=== PATIENT | male | born 1940 | race Caucasian/White ===

== ENCOUNTER → 2016-10-30 | Outpatient (CLI) | payer MEDICARE, OTHER ==
[~2016-10-30] MED LIST: ALDACTONE25 MG PO; ASPIR 8181 MG PO; DIGOXIN125 MCG PO; FINASTERIDE5 MG PO; FOLIC ACID1 MG PO; GLUCOPHAGE500 MG PO; LASIX 40 MG TAB40 MG PO; LIPITOR TAB 2020 MG PO; METHOTREXATE2.5 MG PO; MONTELUKAST SOD10 MG PO; NITROSTAT 0.40.4 MG SL; PRADAXA 150 MG150 MG PO; PREDNISONE 10 M10 MG PO; PROTONIX 40 MG40 M1 PO; RAZADYNE12 MG PO; TIZANIDINE HCL4 MG PO; TOPROL XL50 MG PO
[2016-10-30 11:24] LABS: HEMOGLOBIN 15.1 gm/dl (14.0-17.5); RED BLOOD COUNT 4.99 M/UL (4.20-5.50); WHITE BLOOD COUNT 11.4 K/UL (4.5-11.0)
[2016-10-30 12:06] LABS: BUN/CREATININE RATIO 19 (0-10)
== END ==
LOC: LAB 10:26
PROVIDERS: Internal Medicine
DX: R68.89 Other general symptoms and signs (principal); I71.4 Abdominal aortic aneurysm, without rupture; M79.606 Pain in leg, unspecified
CPT/HCPCS: 36415; 80048; 85025; 85610; 85730

== ENCOUNTER → 2016-11-01 | Outpatient (CLI) | payer MEDICARE, OTHER ==
[~2016-11-01] VITALS: Ht 180.3 cm; Wt 103.0 kg
== END | disposition home or self-care (01) ==
LOC: CATH 06:24
DX: I70.221 Atherosclerosis of native arteries of extremities with rest pain, right leg (principal); I71.4 Abdominal aortic aneurysm, without rupture; I11.0 Hypertensive heart disease with heart failure; I50.32 Chronic diastolic (congestive) heart failure; I48.2 Chronic atrial fibrillation; I48.0 Paroxysmal atrial fibrillation; E78.5 Hyperlipidemia, unspecified; E11.9 Type 2 diabetes mellitus without complications; R68.89 Other general symptoms and signs; Z87.891 Personal history of nicotine dependence; Z79.02 Long term (current) use of antithrombotics/antiplatelets; E66.9 Obesity, unspecified; M25.50 Pain in unspecified joint; M62.81 Muscle weakness (generalized); R06.02 Shortness of breath; R07.89 Other chest pain; Z79.82 Long term (current) use of aspirin; Z79.52 Long term (current) use of systemic steroids; Z79.899 Other long term (current) drug therapy; Z79.01 Long term (current) use of anticoagulants; I25.10 Atherosclerotic heart disease of native coronary artery without angina pectoris; K21.9 Gastro-esophageal reflux disease without esophagitis; I49.3 Ventricular premature depolarization; Z68.33 Body mass index [BMI] 33.0-33.9, adult; Z79.84 Long term (current) use of oral hypoglycemic drugs
CPT/HCPCS: 36200; 75630; 82962; C1769; C1887; J1644; J2250; J3010; J7030; Q9965

== ENCOUNTER → 2016-11-21 | Outpatient (CLI) | payer MEDICARE, OTHER | LOC: HEART 5 12:47 | DX: I25.10 Atherosclerotic heart disease of native coronary artery without angina pectoris (principal); M79.605 Pain in left leg; M79.604 Pain in right leg; I48.2 Chronic atrial fibrillation; I50.32 Chronic diastolic (congestive) heart failure; Z86.718 Personal history of other venous thrombosis and embolism ==

== ENCOUNTER 2017-01-12 18:40 | Emergency (ER) | payer MEDICARE | END 2017-01-12 22:50 | disposition home or self-care (01) | LOC: ER1 18:40 | DX: S39.012A Strain of muscle, fascia and tendon of lower back, initial encounter (principal); I11.0 Hypertensive heart disease with heart failure; I50.9 Heart failure, unspecified; E11.9 Type 2 diabetes mellitus without complications; X58.XXXA Exposure to other specified factors, initial encounter; Z79.82 Long term (current) use of aspirin; Z79.899 Other long term (current) drug therapy | CPT/HCPCS: 72131; 73564; 99284 ==

== ENCOUNTER → 2017-02-28 | Outpatient (CLI) | payer MEDICARE, OTHER | LOC: US 09:52 | DX: I71.4 Abdominal aortic aneurysm, without rupture (principal) | CPT/HCPCS: 93979 ==

== ENCOUNTER → 2020-11-24 | Outpatient (CLI) | payer MEDICARE, OTHER ==
[~2020-11-24] MED LIST changes: +KEFLEX500 MG PO
== END ==
LOC: HEART CORB 09:25
DX: R07.2 Precordial pain (principal); I34.0 Nonrheumatic mitral (valve) insufficiency; I07.1 Rheumatic tricuspid insufficiency; I11.9 Hypertensive heart disease without heart failure; R06.02 Shortness of breath
CPT/HCPCS: 78452; 93306; A9502; J2785

== ENCOUNTER → 2021-07-26 | Outpatient (CLI) | payer MEDICARE, OTHER ==
[2021-07-28 08:13] LABS: HIV SCREEN 4TH GENERATION WRFX Non Reactive (Non Reactive); RHEUMATOID ARTHRITIS FACTOR 17.3 IU/mL (<14.0)
[2021-07-28 16:09] LABS: LYME IGG/IGM AB <0.91 ISR (0.00-0.90)
== END ==
LOC: LAB 16:14
PROVIDERS: Ophthalmology
DX: H20.9 Unspecified iridocyclitis (principal); J43.9 Emphysema, unspecified
CPT/HCPCS: 36415; 71046; 81374; 82164; 86038; 86256; 86431; 86618; 86777; 86778; 86780; 87389

== ENCOUNTER → 2022-04-04 | Outpatient (CLI) | payer MEDICARE, OTHER ==
[~2022-04-04] MED LIST changes: +CARBIDOPA-LEVO1 EAC2 PO; +FAMOTIDINE20 MG PO; +FLOMAX0.4 MG PO; +ISOSORBIDE MONO30 MG PO; +OXTELLAR XR300 MG PO; +PLETAL 100 MG100 MG PO; +PRADAXA150 MG PO; +SYNJARDY XR 121 EACH PO; +TRULICITY3 MG/0.5 M SQ; +ZOLOFT25 MG PO; +ZYLOPRIM100 MG PO
== END ==
LOC: CATH 07:06
DX: I25.118 Atherosclerotic heart disease of native coronary artery with other forms of angina pectoris (principal); I25.84 Coronary atherosclerosis due to calcified coronary lesion; I11.0 Hypertensive heart disease with heart failure; I50.32 Chronic diastolic (congestive) heart failure; I73.9 Peripheral vascular disease, unspecified; E11.9 Type 2 diabetes mellitus without complications; Z98.890 Other specified postprocedural states
CPT/HCPCS: 82962; 85347; 93571; 93572; 99152; 99153; C1769; C1887; C1894; J0153; J1644; J2250; J3010; Q9965